=== PATIENT | male | born 1975 | race African-American/Black ===

== ENCOUNTER → 2017-01-13 | Outpatient (CLI) | payer OTHER ==
[~2017-01-13] VITALS: Ht 154.9 cm; Wt 61.2 kg
[~2017-01-13] MED LIST: NS 1,000 ML IV SCH; no medications
--- NOTE | 2017-01-13 11:33 | ROOR ---
Patient Name: Caroline Walker Procedure Date: 01/13/2017 11:15 AM Date of : 1975 Age: 41 Room: [facility] Gender: Male Note Status: Finalized Procedure: Upper GI endoscopy Indications: Functional Dyspepsia, Heartburn, Preoperative assessment Providers: Noel MARTINEZ MD Referring MD: Bridgette Gray Requesting Provider: Medicines: Monitored Anesthesia Care Complications: No immediate complications. Procedure: Pre-Anesthesia Assessment: - The heart rate, respiratory rate, oxygen saturations, blood pressure, adequacy of pulmonary ventilation, and response to care were monitored throughout the procedure. The Endoscope was introduced through the mouth, and advanced to the second part of duodenum. The upper GI endoscopy was accomplished without difficulty. The patient tolerated the procedure well. Findings: The esophagus was normal. The stomach was normal. The examined duodenum was normal. The Z-line was regular and was found 36 cm from the incisors. The NOVOA capsule with delivery system was introduced through the mouth and advanced into the esophagus, such that the NOVOA pH capsule was positioned 30 cm from the incisors, which was 6 cm proximal to the GE junction. The NOVOA pH capsule was then deployed and attached to the esophageal mucosa. The delivery system was then withdrawn. Endoscopy was utilized for probe placement and diagnostic evaluation. The scope was reinserted to evaluate placement of the NOVOA capsule. Visualization showed the NOVOA capsule to be in an appropriate position. Impression: - Normal esophagus. - Normal stomach. - Normal examined duodenum. - Z-line regular, 36 cm from the incisors. - The NOVOA pH capsule was deployed. - No specimens collected. Recommendation: - Novoa pH testing: OFF PPI meds. - Instructions: Avoid all reflux medications for next 48 hrs. (i.e. Avoid all the following for the next 48 hours: Prilosec/Omeprazole, Nexium, Prevacid/Lansoprazole, Dexilant, Zegerid/Omeprazole, Aciphex/Rabeprazole, Protonix/Pantoprazole, Zantac/Ranitidine, Pepcid/Famotidine, Tagamet). You may take tums, rolaids or maalox for severe symptoms, but try to limit this as well. Do not try to avoid your usual triggers for your symptoms for next 48 hrs. (If you have known "triggers" for your symptoms such as caffeine, fatty foods, laying down after meals etc, it is encouraged that you do try to reproduce your symptoms as much as possible over next 48 hrs.) =---->Call me in 2 weeks for results of this study. Noel Martinez MD Noel MARTINEZ MD 01/13/2017 11:32:58 AM This report has been signed electronically. Number of Addenda: 0 Note Initiated On: 01/13/2017 11:15 AM Estimated Blood Loss: Estimated blood loss: none.
[2017-01-13 12:05] VITALS: BP 127/80
== END | disposition home or self-care (01) ==
LOC: M OPP 09:26
PROVIDERS: ATTEND Internal Medicine Gastroenterology
DX: Z01.818 Encounter for other preprocedural examination (principal); K30 Functional dyspepsia; R12 Heartburn; Z88.8 Allergy status to other drugs, medicaments and biological substances

== ENCOUNTER → 2018-06-07 | Outpatient (CLI) | payer OTHER | LOC: M RAD 10:20 | DX: I77.71 Dissection of carotid artery (principal) | CPT/HCPCS: 93880 ==

== ENCOUNTER → 2025-07-21 | Outpatient (CLI) | payer OTHER ==
[~2025-07-21] MED LIST changes: -NS 1,000 ML IV SCH
== END ==
LOC: M RAD 06:42
PROVIDERS: ATTEND Nurse Practitioner Family
DX: R94.5 Abnormal results of liver function studies (principal)